=== PATIENT | female | born 1990 | race African-American/Black ===

== ENCOUNTER 2016-06-24 18:41 | Emergency (ER) | payer OTHER ==
[2016-06-24] MEDS ORDERED: Acetaminophen TAB* 325 MG PO ONE (19:19)
--- NOTE | 2016-06-24 19:40 | ED ---
Influenza-Like Illness - HPI Summary HPI Summary: The patient is a 25 year old female presenting to ED for complaint of chills, nasal congestion, cough, and diarrhea which began today. Also reports bilateral inferior chest pain constant x3 months secondary to pendulous breast awaiting surgical evaluation for possible reduction. Denies known fever, diaphoresis, neck stiffness of immobility, palpitations, lightheadedness, syncope, wheezing, hemoptysis, abdominal pain, vomiting, dysuria, urinary frequency or urgency, hematuria, vaginal complaint. LMP 4 months ago on Depo-Provera. Denies significant past medical history. S/p left ankle surgery and x2. Family history of mother with Depression and Bipolar Disorder. SH: Current smoker. Admits to 12 oz beer daily. In triage screening, patient states history of anxiety and depression on Zoloft with improvement. Admits to remote history of SI 3-4 years ago. Denies current significant depression, suicidal ideation, plan, or gesture. No HI. Declines need for MHE today. Declined resources for outpatient psych or substance use. - History of Current Complaint Chief Complaint: EDChestWallPain Time Seen by Provider: 06/24/16 18:59 - Allergy/Home Medications Allergies/Adverse Reactions: Allergies Allergy/AdvReac Type Severity Reaction Status Date / Time No Known Allergies Allergy Verified 11/18/15 17:05 PMH/Surg Hx/FS Hx/Imm Hx Previously Healthy: Yes Infectious Disease History: No Infectious Disease History: Denies: Traveled Outside the [place] in Last 30 Days - Family History Known Family History: Positive: Hypertension - Social History Alcohol Use: Occasionally Substance Use Type: Reports: None Smoking Status (MU): Current Every Day Smoker Review of Systems Positive: Fever, Chills Eyes: Negative Positive: Nasal Discharge. Negative: Ear Ache Positive: Chest Pain. Negative: Palpitations Positive: Cough. Negative: Shortness Of Breath Positive: Diarrhea, Nausea. Negative: Abdominal Pain, Vomiting Genitourinary: Negative Negative: burning, dysuria, discharge, frequency, flank pain, hematuria, urgency Positive: Myalgia Skin: Negative Positive: Headache Psychological: Normal All Other Systems Reviewed And Are Negative: Yes Physical Exam Triage Information Reviewed: Yes Vital Signs On Initial Exam: Initial Vitals Temp Pulse Resp BP Pulse Ox 100.1 F 125 20 154/101 99 06/24/16 18:43 06/24/16 18:43 06/24/16 18:43 06/24/16 18:43 06/24/16 18:43 Vital Signs Reviewed: Yes Appearance: Positive: Well-Appearing, Well-Nourished, Pain Distress - speaking calmly without guarding or grimace; mild pain Skin: Positive: Warm, Skin Color Reflects Adequate Perfusion, Dry Head/Face: Positive: Normal Head/Face Inspection Eyes: Positive: Normal, EOMI, MACKENZIE, Conjunctiva Clear ENT: Positive: Normal ENT inspection, Hearing grossly normal, Pharynx normal, TMs normal. Negative: Pharyngeal erythema, Nasal congestion, Nasal drainage Neck: Positive: Supple, Nontender, No Lymphadenopathy. Negative: Nuchal Rigidity Respiratory/Lung Sounds: Positive: Clear to Auscultation, Breath Sounds Present. Negative: Rales, Rhonchi, Wheezes, Unable to speak in full sentences Cardiovascular: Positive: Normal, RRR, Pulses are Symmetrical in both Upper and Lower Extremities, Other - reproducible bilateral inferior chest wall tenderness without deformity; pendulous large symmetric breasts, S1, S2. Negative: Murmur, Rub, Leg Edema Left, Leg Edema Right Abdomen Description: Positive: Nontender, No Organomegaly, Soft Bowel Sounds: Positive: Present Musculoskeletal: Positive: Normal - AROM all extremities Neurological: Positive: Normal - awake, alert, Facial Symmetry, Speech Normal Psychiatric: Positive: Normal AVPU Assessment: Alert Diagnostics - Vital Signs Vital Signs Temp Pulse Resp BP Pulse Ox 06/24/16 18:43 100.1 F 125 20 154/101 99 - Laboratory Result Diagrams: 06/24/16 20:15 06/24/16 20:15 Lab Statement: Any lab studies that have been ordered have been reviewed, and results considered in the medical decision making process. Flu Symptom Course/Dx - Course Assessment/Plan: Patient is a 25 female presenting for chills, nasal sx, diarrhea and chronic chest pain. CXR negative. Negative influenza. Impression Viral Syndrome. Rx for ibuprofen, loperamide, and sudafed. Advised to follow-up with PCP in 1 week. - Diagnoses Provider Diagnoses: Viral syndrome Discharge - Discharge Plan Condition: Stable Disposition: HOME Prescriptions: Ibuprofen TAB* [Motrin TAB* 600 MG] 600 mg PO Q6H PRN #20 tab PRN Reason: Pain Loperamide CAP* [Imodium CAP*] 2 mg PO Q4H PRN #20 cap MDD 16 mg PRN Reason: Diarrhea Pseudoephedrine HCL ER TAB* [Sudafed 12 Hour*] 120 mg PO BID #10 tab.er Patient Education Materials: Chest Pain (ED), Viral Syndrome (ED) Referrals: [facility] [place] PHYSICIAN REFERRAL [Outside]
--- NOTE | 2016-06-24 20:10 | RAD ---
INDICATION: Cough. Chest pain COMPARISON: None TECHNIQUE: PA and lateral dual-energy views were obtained. FINDINGS: Bones/Soft Tissues: There are no acute bony findings. Cardiomediastinal: The cardiomediastinal silhouette is normal. Lungs: There are no infiltrates. Pleura: There are no pleural effusions. Other: None IMPRESSION: NO ACTIVE DISEASE.
[2016-06-24 20:23] LABS: Hematocrit 38 % (35-47); Hemoglobin 12.4 g/dl (12.0-16.0); Mean Corpuscular HGB Conc 33 g/dl (31-36); Mean Corpuscular Hemoglobin 25 pg (27-31); Mean Corpuscular Volume 77 fL (80-97); Mean Platelet Volume 8 um3 (7.4-10.4); Red Blood Count 4.97 10^6/ul (4.0-5.4); Red Cell Distribution Width 16 % (10.5-15); White Blood Count 8.9 10^3/ul (3.5-10.8)
[2016-06-24 20:38] LABS: Anion Gap 8 mmol/L (2-11); BUN/Creatinine Ratio 10.8 (8-20); Blood Urea Nitrogen 7 mg/dL (6-24); CO2 Carbon Dioxide 22 mmol/L (22-32); Calcium 9.2 mg/dL (8.6-10.3); Chloride 102 mmol/L (101-111); EGFR African American 141.7 (>60); EGFR Non-African American 110.2 (>60); Glucose 98 mg/dL (70-100); Potassium 3.3 mmol/L (3.5-5.0); Sodium 132 mmol/L (133-145)
[2016-06-24] MEDS ORDERED: Potassium Chlor TAB* 20 MEQ TAB.ER PO ONE (20:41)
[2016-06-24 21:54] VITALS: BP 139/96
[2016-06-24] MEDS ORDERED: Ibuprofen TAB* 600 MG PO ONE (22:01)
== END 2016-06-24 21:52 | disposition home or self-care (01) ==
LOC: ED 18:41
DX: B34.9 Viral infection, unspecified (principal); F17.200 Nicotine dependence, unspecified, uncomplicated
CPT/HCPCS: 36415; 71020; 80048; 84702; 85025; 87502; 99282; A9270-GY

== ENCOUNTER 2019-02-12 01:24 | Emergency (ER) | payer OTHER ==
[2019-02-12] MEDS ORDERED: Ketorolac INJ* 30 MG/ML 1 ML VIAL IV PUSH ONE (01:53)
--- NOTE | 2019-02-12 01:54 | ED ---
Abdominal Pain/Female - HPI Summary HPI Summary: Patient is a 28 y/o F presenting to [facility] with complaints of abdominal pain that onset a week ago and worsened the evening of 02/11/19. She reports that she had similar pain with ovarian cyst in 2014, but denies any other similar episodes since. She reports that she has had decreased appetite and feels nauseous when standing up, but reports no vomiting or diarrhea. LNMP was January 13. Patient is possibly late for her period. She states that she took two tests, both of which were negative. A3 noted. No Hx of abdominal surgeries reported. Patient also makes note of an episode of vaginal bleeding that occurred at the beginning of January. On triage, pain is rated 9/10, nothing is noted to aggravate/alleviate Sx. Home medications and allergies are reviewed. - History of Current Complaint Chief Complaint: EDAbdPain Stated Complaint: ABD PAIN PER EMS Time Seen by Provider: 02/12/19 01:44 Hx Obtained From: Patient Onset/Duration: Lasting Weeks, Still Present, Worse Since Timing: Weeks Severity Initially: Moderate Severity Currently: Severe Pain Intensity: 9 Pain Scale Used: 0-10 Numeric Aggravating Factor(s): Nothing Alleviating Factor(s): Nothing Associated Signs and Symptoms: Positive: Decreased Appetite, Vaginal Bleeding - at beginning of January, Nausea. Negative: Vomiting, Diarrhea Allergies/Adverse Reactions: Allergies Allergy/AdvReac Type Severity Reaction Status Date / Time guaifenesin [From Robitussin] Allergy Severe Airway Verified 02/12/19 01:34 Obstruction PMH/Surg Hx/FS Hx/Imm Hx Cardiovascular History: Reports: Hx Hypertension Sensory History: Denies: Hx Legally Blind, Hx Deafness Opthamlomology History: Denies: Hx Legally Blind EENT History: Denies: Hx Deafness - Immunization History Date of Tetanus Vaccine: unsure Date of Influenza Vaccine: none Infectious Disease History: No Infectious Disease History: Denies: Traveled Outside the [place] in Last 30 Days - Family History Known Family History: Positive: Hypertension - Social History Alcohol Use: Occasionally Alcohol Amount: margaritas Substance Use Type: Reports: None Smoking Status (MU): Current Every Day Smoker Review of Systems Gastrointestinal: Other - positive - decreased appetite Positive: Abdominal Pain, Nausea. Negative: Vomiting, Diarrhea Genitourinary: Other - positive - vaginal bleeding All Other Systems Reviewed And Are Negative: Yes Physical Exam - Summary Physical Exam Summary: Appearance: Well-appearing, Well-nourished, lying in bed comfortably Skin: Warm, dry, no obvious rash Eyes: sclera anicteric, no conjunctival pallor ENT: mucous membranes moist, pharynx appears normal Neck: Supple, nontender Respiratory: Clear to auscultation, no signs of respiratory distress Cardiovascular: Normal S1, S2. No murmurs. Normal distal pulses in tibial and radial bilaterally. Abdomen: Soft, generalized abdominal tenderness with no rebound and some voluntary guarding, normal active bowel sounds present Musculoskeletal: Normal, Strength/ROM Intact Neurological: A&Ox3, awake and alert, mentation is normal, speech is fluent and appropriate Psychiatric: affect is normal, does not appear anxious or depressed Triage Information Reviewed: Yes Vital Signs On Initial Exam: Initial Vitals Temp Pulse Resp BP Pulse Ox 97.8 F 83 20 153/114 100 02/12/19 01:28 02/12/19 01:28 02/12/19 01:28 02/12/19 01:28 02/12/19 01:28 Vital Signs Reviewed: Yes Diagnostics - Vital Signs Vital Signs Temp Pulse Resp BP Pulse Ox 02/12/19 01:28 97.8 F 83 20 153/114 100 - Laboratory Result Diagrams: 02/12/19 01:59 02/12/19 01:59 Lab Statement: Any lab studies that have been ordered have been reviewed, and results considered in the medical decision making process. Re-Evaluation - Re-Evaluation First Eval Re-Evaluation Time: 03:23 Comment: Results of labs and tests were discussed. Patient was prescribed Bactrim and discharged to home with PCP follow up in three days. Abdominal Pain Fem Course/Dx - Course Course Of Treatment: Patient is a 28 y/o F presenting to [facility] with complaints of abdominal pain that onset a week ago and worsened the evening of 02/11/19. She reports that she had similar pain with ovarian cyst in 2014, but denies any other similar episodes since. She reports that she has had decreased appetite and feels nauseous when standing up, but reports no vomiting or diarrhea. LNMP was January 13. Patient is possibly late for her period. She states that she took two tests, both of which were negative. A3 noted. No Hx of abdominal surgeries reported. Patient also makes note of an episode of vaginal bleeding that occurred at the beginning of January. On physical exam, there is generalized abdominal tenderness with no rebound and some voluntary guarding.Bloodwork was obtained. Labs showed Hgb 11.6, MCH 26, RDW 16, glucose 116, calcium 8.4. Beta HCG was negative. UA showed 2+ leukocyte esterase, 1+ WBC , and present squamous eptih cells. During ED course, patient was given toradol 10 mg IV PUSH and Bactrim 800/160, 1 tab PO. She was given a prescription for Bactrim and was discharged to home. - Diagnoses Provider Diagnoses: UTI (urinary tract infection), Pelvic pain Discharge ED - Sign-Out/Discharge Documenting (check all that apply): Patient Departure - discharge Patient Received Moderate/Deep Sedation with Procedure: No - Discharge Plan Condition: Good Disposition: HOME Prescriptions: Sulfamethox/Trimethoprim DS* [Bactrim DS 800/160 TAB*] 1 tab PO BID 5 Days #10 tab Patient Education Materials: Urinary Tract Infection in Women (ED), Pelvic Pain in Women (ED) Referrals: Claudia Houston MD [Primary Care Provider] - 3 Days (if not improving) - Billing Disposition and Condition Condition: GOOD Disposition: Home - Attestation Statements Document Initiated by Lazaro: Yes Documenting Scribe: ASHLEY RUSHING Provider For Whom Lazaro is Documenting (Include Credential): MARVIN JORDAN MD Scribe Attestation: ASHLYE Mcneil, scribed for MARVIN JORDAN MD on 02/13/19 at 0526. Scribe Documentation Reviewed: Yes Provider Attestation: The documentation as recorded by the ASHLEY tinsley accurately reflects the service I personally performed and the decisions made by , MARVIN JORDAN MD Status of Scribe Document: Viewed
[2019-02-12 02:24] LABS: ABS Eosinophils 0.1 10^3/ul (0-0.6); ABS Lymphocytes 2.5 10^3/ul (1.0-4.8); ABS Monocytes 0.6 10^3/ul (0-0.8); ABS Neutrophils 5.8 10^3/ul (1.5-7.7); Eosinophil % 0.8 %; Hematocrit 36 % (35-47); Hemoglobin 11.6 g/dL (12.0-16.0); Lymphocyte % 27.7 %; Mean Corpuscular HGB Conc 32 g/dL (31-36); Mean Corpuscular Hemoglobin 26 pg (27-31); Mean Corpuscular Volume 80 fL (80-97); Mean Platelet Volume 8.7 fL (7.4-10.4); Nucleated Red Blood Cells % 0.1; Platelet Count 388 10^3/uL (150-450); Red Blood Count 4.46 10^6 /uL (3.70-4.87); Red Cell Distribution Width 16 % (10-15); White Blood Count 9.1 10^3/uL (3.5-10.8)
[2019-02-12 02:26] LABS: ALT 10 U/L (7-52); AST 13 U/L (13-39); Albumin 4.1 g/dL (3.2-5.2); Albumin/Globulin Ratio 1.4 (1-3); Alkaline Phosphatase 65 U/L (34-104); Anion Gap 5 mmol/L (2-11); BUN/Creatinine Ratio 10.8 (8-20); Blood Urea Nitrogen 8 mg/dL (6-24); C Reactive Protein 2.53 mg/L (<8.01); CO2 Carbon Dioxide 27 mmol/L (22-32); Calcium 8.4 mg/dL (8.6-10.3); Chloride 103 mmol/L (101-111); EGFR African American 112.3 (>60); EGFR Non-African American 92.8 (>60); Globulin 2.9 g/dL (2-4); Glucose 116 mg/dL (70-100); Potassium 3.7 mmol/L (3.5-5.0); Sodium 135 mmol/L (135-145)
[2019-02-12 02:33] LABS: HCG Pregnancy < 0.60 mIU/mL
[2019-02-12 02:59] LABS: Urine Appearance Clear; Urine Bacteria Absent (Absent); Urine Bilirubin Negative (Negative); Urine Blood Negative (Negative); Urine Color Straw; Urine Glucose Negative (Negative); Urine Ketones Negative (Negative); Urine Nitrite Negative (Negative); Urine Protein Negative (Negative); Urine Red Blood Cell Absent (Absent); Urine Specific Gravity 1.009 (1.010-1.030); Urine Squamous Epithelial Cell Present (Absent); Urine Urobilinogen Negative (Negative); Urine White Blood Cell 1+(6-10/hpf) (Absent)
[2019-02-12] MEDS ORDERED: Sulfamethox/Trimethoprim DS 800/160* TAB PO ONE (03:23)
[2019-02-12 03:49] VITALS: BP 147/95
== END 2019-02-12 03:48 | disposition home or self-care (01) ==
LOC: ED 01:24
DX: N39.0 Urinary tract infection, site not specified (principal); R10.2 Pelvic and perineal pain; N93.9 Abnormal uterine and vaginal bleeding, unspecified; R11.0 Nausea; R10.84 Generalized abdominal pain; Z32.02 Encounter for pregnancy test, result negative; I10 Essential (primary) hypertension; Z88.8 Allergy status to other drugs, medicaments and biological substances; F17.290 Nicotine dependence, other tobacco product, uncomplicated
CPT/HCPCS: 36415; 80053; 81003; 81015; 83690; 84702; 85025; 86140; 87086; 96374; 99283; A9270-GY; J1885

== ENCOUNTER 2019-03-21 11:55 | Emergency (ER) | payer OTHER ==
[2019-03-21 12:44] VITALS: BP 152/95
[2019-03-21] MEDS ORDERED: Ibuprofen TAB* 600 MG PO ONE (13:33)
--- NOTE | 2019-03-21 13:37 | UC ---
Hand/Wrist HPI - HPI Summary HPI Summary: Patient is a 28-year-old female presenting with left fifth finger and swelling and bruising after she banged it on the table yesterday. States the pain radiates into her hand. Notes some numbness of the finger. Describes pain as throbbing. Denies icing or taking any pain medication. Patient is concerned for fracture, stating that the finger does not look like its normal shape. She also had that she would like a test while here today. - History Of Current Complaint Chief Complaint: UCUpperExtremity Stated Complaint: FINGER INJURY Hx Obtained From: Patient Hx Last Menstrual Period: 02/22/19 Onset/Duration: Sudden Onset Severity Currently: Moderate Pain Intensity: 6 - Allergies/Home Medications Allergies/Adverse Reactions: Allergies Allergy/AdvReac Type Severity Reaction Status Date / Time guaifenesin [From Robitussin] Allergy Severe Airway Verified 03/21/19 12:36 Obstruction PMH/Surg Hx/FS Hx/Imm Hx Previously Healthy: Yes - Surgical History Surgical History: Yes Surgery Procedure, Year, and Place: D&C - Family History Known Family History: Positive: Hypertension, Non-Contributory - Social History Alcohol Use: Occasionally Alcohol Amount: margaritas Substance Use Type: None Smoking Status (MU): Current Every Day Smoker Amount Used/How Often: 1/2 PPD - Immunization History Most Recent Influenza Vaccination: unk Most Recent Tetanus Shot: 02/28/2014 Most Recent Pneumonia Vaccination: unk Review of Systems All Other Systems Reviewed And Are Negative: No Constitutional: Positive: Negative Respiratory: Positive: Negative Cardiovascular: Positive: Negative Gastrointestinal: Positive: Negative Musculoskeletal: Positive: Arthralgia, Decreased ROM, Edema. Negative: Myalgia Neurological: Positive: Numbness. Negative: Weakness, Paresthesia Physical Exam Triage Information Reviewed: Yes Appearance: Well-Appearing, No Pain Distress, Well-Nourished Vital Signs: Initial Vital Signs Temp 97.8 F 03/21/19 12:37 Pulse 82 03/21/19 12:37 Resp 16 03/21/19 12:37 BP 152/95 03/21/19 12:37 Pulse Ox 100 03/21/19 12:37 Vital Signs Reviewed: Yes Eyes: Positive: Conjunctiva Clear ENT: Positive: Hearing grossly normal Neck: Positive: Supple Respiratory: Positive: No respiratory distress Cardiovascular: Positive: Pulses Normal - Strong radial pulses bilaterally, Brisk Capillary Refill Musculoskeletal: Positive: Strength Intact, ROM Limited @ - Flexion of left fifth finger., Edema @ - Left fifth finger Neurological Exam: Other - Sensation grossly intact Neurological: Positive: Alert Psychological: Positive: Age Appropriate Behavior Skin Exam: Other - Significant ecchymosis noted of entire left fifth finger Diagnostics - Radiology L fifth finger Radiology Interpretation Completed By: Radiologist Summary of Radiographic Findings: IMPRESSION: OBLIQUE FRACTURE OF THE MIDDLE PHALANX OF THE FIFTH DIGIT. Hand/Wrist Course/Dx - Course Course Of Treatment: Discussed finger fracture with patient. The finger is splinted and she was directed to follow-up with orthopedics as soon as possible for further evaluation. Instructed to continue with symptomatic treatment and over-the- counter pain medications as directed. Directed her to go to the emergency room if pain worsens. Patient voiced understanding and agreed with the treatment plan. - Differential Dx/Diagnosis Provider Diagnosis: Fracture of middle phalanx of left little finger Discharge ED - Sign-Out/Discharge Documenting (check all that apply): Patient Departure All imaging exams completed and their final reports reviewed: Yes - Discharge Plan Condition: Stable Disposition: HOME Prescriptions: Ibuprofen TAB* [Advil TAB*] 200 mg PO Q6H PRN #100 tab PRN Reason: Pain - Moderate Patient Education Materials: Finger Fracture (ED) Referrals: Claudia Houston MD [Primary Care Provider] - If Needed Jaswant Salmon MD [Medical Doctor] - If Needed Additional Instructions: As discussed, the xrays showed a fracture of your finger. Keep the finger splint on until you are able to follow up with orthopedics. Rest and use ice and elevation to help relieve pain. You may also use over the counter pain medications as directed for relief of pain. Follow up with orthopedics llisted below as soon as possible. Return or go to the emergency room if you experience severe pain, the finger or hand becomes cold and numb, or you are unable to move the finger or hand. - Billing Disposition and Condition Condition: STABLE Disposition: Home
== END 2019-03-21 14:30 | disposition home or self-care (01) ==
LOC: UCEAST 11:55
DX: S62.627A Displaced fracture of middle phalanx of left little finger, initial encounter for closed fracture (principal); F17.210 Nicotine dependence, cigarettes, uncomplicated; Z88.8 Allergy status to other drugs, medicaments and biological substances; W22.03XA Walked into furniture, initial encounter; Y92.9 Unspecified place or not applicable
CPT/HCPCS: 73140; 84702; 99213; A9270-GY; G0463